=== PATIENT | male | born 1965 | race Caucasian/White ===

== ENCOUNTER → 2016-10-11 | Outpatient (CLI) | payer MEDICARE, MEDICAID ==
[~2016-10-11] MED LIST: ALDACTONE 25MG25 MG PO; AMOXICILLIN 50500 MG PO; ASPIRIN 81MG TA81 MG PO; ATIVAN GENERIC0.5 MG PO; ATIVAN1 MG PO; ATORVASTATIN CA80 MG PO; BACTRIM DS 8001 TAB PO; BACTROBAN2% TP; BIAXIN FILMTAB500 MG PO; BUPROPION ER100 MG PO; CARDIZEM GENERI30 MG FT; EFFIENT10 M1 PO; FLEXERIL10 M1 PO; FLEXERIL10 MG PO; HYDROCODONE BIT1 T19 PO; LISINOPRIL10 MG PO; LOPRESSOR 25MG.25 MG PO; METFORMIN500 MG PO; MOBIC15 MG PO; OXYCODONE CR10 MG PO; OXYCODONE30 MG PO; PANTOPRAZOLE SO40 M1 PO; PERCOCET 10 MG1 EACH PO; PERCOCET1 TAB PO; RELION NOVOLIN10 ML SC; TERAZOSIN HCL1 MG PO; WELLBUTRIN SR100 MG
[2016-10-11 12:53] LABS: AMPHETAMINES/METAMPHETAMINES NEGATIVE ng/mL (<1000)
[2016-10-11 14:38] LABS: BUN 19 mg/dL (7-18)
[2016-10-11 14:40] LABS: GFR (ESTIMATED) 70 ML/MIN (>60)
== END ==
LOC: LAB 11:46
PROVIDERS: Emergency Medicine
DX: E11.9 Type 2 diabetes mellitus without complications (principal); Z79.899 Other long term (current) drug therapy

== ENCOUNTER 2016-11-19 19:47 | Emergency (ER) | payer MEDICARE ==
[~2016-11-19] VITALS: Ht 182.9 cm; Wt 96.2 kg
--- NOTE | 2016-11-19 20:15 | Emergency Room Report ---
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 N Clinical Suspician of Infection? N Mental Status: 1 - Regular (Normal Baseline) Sepsis Risk:Low Sepsis Risk Have you (or family members/close friends) recently traveled outside the [place]? N If Yes, where/when: Have you had exposure to infectious disease within the past month? N TB? Other? Specify: Source patient, RN notes reviewed, family, old records Exam Limitations no limitations Comment acute injury lt femur and knee after trip fallthis pm Cardiac Chest Pain Chest pain indicative of cardiac No Timing/Duration this evening Severity moderate ALLERGIES Coded Allergies: latex (Intermediate, I-RASH 10/13/15) Home Medications Reported Medications ASPIRIN (Aspirin) 81 MG PO DAILY BUPROPION HCL (Bupropion HCl Sr) 100 MG PO DAILY #30 Pantoprazole Sodium 40 MG PO BID #30 INSULIN NPH HUM/REG INSULIN HM (Relion Novolin 70-30 Vial) 33 UNITS SC TID #30 VIAL Metoprolol Tartrate (Lopressor) 25 MG PO BID Atorvastatin Calcium 80 MG PO QHS #1 TAB Lisinopril 10 MG PO DAILY #30 TAB OXYCODONE HCL/ACETAMINOPHEN (Percocet 5-325 MG Tablet) 1 TAB PO TID BUPROPION HCL SR (Wellbutrin SR 100MG) History Medical History General CAD? Yes Angina: Yes DC: Yes Hypertension? Yes Hyperlipidemia? Yes CHF? No DVT? No PE? No COPD? No Asthma? No Anemia? No GERD? No Gastric ulcers? No GI Bleed? No Hernia? No Thyroid Problems? No Hypothyroidism? No CVA? No Seizures? No Diabetes? Yes Insulin Dependent: Yes Insulin Pump: No Home FSBS? Yes Renal Insuffiency? No End Stage Renal Disease? No UTI? No Stones? No BPH? Yes GB Disease: No Nephritic Syndrome? No Asplenia? No Hepatitis? No Sickle Cell Disease? No Arthritis? No Migraines? No Cataracts? No Glaucoma? No MRSA? No HIV? No TB? No Anxiety? No Depression? No Cancer? No More? No Immunization Hx DT/Tetanus 1-4 Years Ago Flu NEVER Pneumonia < 1 YR AGO Surgical Hx Previous Surgery?Y KNEE LEFT Appendix HEART CATH 3 STENTS PLACED IN HEART Family History Family Hx Diabetes Yes CAD Yes Hypertension Yes Hyperlipidemia Yes Cancer No Social History Smoking Hx Smoker: Current Every Day Smoker Tobacco: Yes Type Cigarettes Packs/day < 1 Pack Alcohol Alcohol: Yes Drugs none Review of Systems All Other Systems Reviewed and Negative Constitutional denies fever Eyes denies drainage ENT denies: ear discharge, epistaxis, throat pain. Respiratory denies cough, denies shortness of breath, denies wheezing Cardiovascular denies chest pain, denies syncope Gastrointestinal denies abdominal pain, denies diarrhea, denies vomiting Genitourinary denies: dysuria, frequency, hesitancy, hematuria. Musculoskeletal see HPI, denies back pain, joint pain, denies joint swelling, denies neck pain Skin denies rash Psychiatric/Neurological denies headache, denies seizure Physical Exam Vital Signs Vital Signs Date Time Temp Pulse Resp B/P Pulse O2 O2 Flow FiO2 Ox Delivery Rate 11/20 2055 81 18 154/98 96 11/20 2003 20 11/19 2001 97.0 83 22 142/97 98 - WBC >12,000 or <4,000 or 10% bands? 2 or more SIRS Criteria Met? B/P:154/98 MAP:112 Creatinine >2.0? UA output<0.5ml/kg/hr for 2 hrs? Platelet count >100,000? Lactate >2.0mmol/1? INR >1.2 or PTT > than 60 sec? Evidence of Organ Dysfunction? Provider documented clinical suspician of infection? N Sepsis Criteria Count: 1 Sepsis Risk: Low Sepsis Risk General Appearance no apparent distress Eye Exam - bilateral eye PERRL, bilateral eye EOMI Ear, Nose, Throat normal ENT inspection Neck supple Respiratory Status No: respiratory distress. Cardiovascular regular rate/rhythm Peripheral Pulses Pulses normal Yes Gastrointestinal soft Back no CVA tenderness, no vertebral tenderness Extremities pelvis stable, tender lt post femur with dec rom and flex but no hematoma Strength 4 Upper Ext (L), 4 Upper Ext (R), 4 Lower Ext (L), 4 Lower Ext (R) Neurologic alert, network associate II-XII nml as tested, no motor/sensory deficits Glascow Coma Scale Glascow Coma Scale Response Value EYE response: 4 Spontaneously 4 MOTOR response: 6 OBEYS 6 VERBAL response: 5 Oriented & Converses 5 Total 15 Reflexes Reflexes normal No Mental status normal mood/affect Skin intact Medical Decision Making LABS/Meds/Orders Pt receiving controlled substance in ED? No Results/Orders Laboratory Tests 11/19/161954: Sodium 138, Potassium 4.1, Chloride 103, Carbon Dioxide 26, BUN 12, Creatinine 1.1, Estimated Creat Clear 106, Estimated GFR (MDRD) 70, Glucose 298 H, Calcium 9.0, Total Bilirubin 0.3, AST 10 L, ALT 25, Alkaline Phosphatase 117 H, Total Protein 7.3, Albumin 3.9, Globulin 3.4 H, Albumin/Globulin Ratio 1.1, WBC 13.1 H, RBC 4.67, Hgb 13.6 L, Hct 41.1 L, MCV 88.0, RDW 15.4, Plt Count 249, Gran % 78.8, Gran # 10.3 H, Lymphocytes % 17.3, Monocytes % 3.9, Lymphocytes # 2.3, Monocytes # 0.5, PUBS MCHC 33.1, MCH 29.1 Current Medication Orders Sig/Missael Start time Last Medication Dose Route Stop Time Status Admin Morphine Sulfate 4 MG ONCE ONE 11/19 2014 DC 11/19 IV 11/19 Ondansetron HCl 4 MG ONCE ONE 11/19 2014 DC 11/19 IV 11/19 Sodium Chloride 10 ML PRN PRN 11/20 1999 AC IV 11/21 1999 Morphine Sulfate 0 .STK-MED ONE 11/19 1958 DC .ROUTE Ondansetron HCl 0 .STK-MED ONE 11/19 1958 DC .ROUTE Orders Procedure Date/time Status KNEE-3 VIEWS-LT 11/19 2028 Active CBC WITH AUTO DIFF 11/19 2005 Complete HIP LT 2-3V W/PELVIS IF PERFOR 11/19 2000 Active FEMUR-LT-2 VIEWS 11/19 2000 Active IV SALINE LOCK 11/19 2000 Active CHEM 12 PROFILE 11/19 2000 Complete XRAY/CT/US XRAY/CT/US XRAY femur, hip, knee, pelvis XR interpretation by reviewed by me Xray Results no fracture seen Departure Departure Time of Disposition 2112 Disposition DC Home or Self Care(routine) Clinical Impression Primary Impression: Lower extremity injury Qualifiers: Encounter type: initial encounter Laterality: left Qualified Code: S89.92XA - Unspecified injury of left lower leg, initial encounter Condition STABLE Referrals Raymundo Lange MD (Family) Patient Instructions DI for Leg Pain Additional Instructions ice and no wt bearing and see pcp for follow up Discharge Counseling Counseled pt/family regarding diagnosis, test results, medications/RX, follow up needs ED Critical Care Critical Care No at [id number]
[2016-11-19 20:16] LABS: HEMOGLOBIN 13.6 g/dL (14.1-18.0)
[2016-11-19 20:17] LABS: LYMPH # 2.3 K/mm3 (0.7-4.5); LYMPH % 17.3 % (10-50)
[2016-11-19 21:40] VITALS: BP 150/95
--- NOTE | 2016-11-20 05:20 | RADIOLOGY REPORT PS360 ---
HIP LT 2-3V W/PELVIS IF PERFOR HISTORY: Left hip pain following injury FALL ORDERING PHYSICIAN: Mary Lange MD PATIENT AGE: 51 years COMPARISON: None FINDINGS: No fracture or dislocation is evident. Mild osteoarthritic changes are present with minimal spurring of the inferior acetabulum. IMPRESSION: No acute finding. Mild osteoarthritic change
--- NOTE | 2016-11-20 05:24 | RADIOLOGY REPORT PS360 ---
KNEE-3 VIEWS-LT HISTORY: Posttraumatic pain fall ORDERING PHYSICIAN: Mary Lange MD PATIENT AGE: 51 years COMPARISON: None FINDINGS: There are severe osteoarthritic changes involving all 3 compartments of the left knee with some cortical irregularity of the medial femoral condyle. Osteoarthritis is worse at the patellofemoral joint with severe osteophyte formation. No acute fracture or dislocation. IMPRESSION: 1. No acute fracture. 2. Severe osteoarthritis of the knee
--- NOTE | 2016-11-20 05:24 | RADIOLOGY REPORT PS360 ---
FEMUR-LT-2 VIEWS HISTORY: Posttraumatic pain FALL ORDERING PHYSICIAN: Mary Lange MD PATIENT AGE: 51 years COMPARISON: None FINDINGS: No fracture or dislocation. No lytic or blastic change. There is normal mineralization. There are severe osteoarthritic changes involving all 3 compartments of the left knee with some cortical irregularity of the medial femoral condyle. Osteoarthritis is worse at the patellofemoral joint with severe osteophyte formation. No acute fracture or dislocation. IMPRESSION: 1. No acute fracture. 2. Severe osteoarthritis of the knee
== END 2016-11-19 21:33 | disposition home or self-care (01) ==
LOC: ER 19:47
PROVIDERS: Emergency Medicine
DX: S89.92XA Unspecified injury of left lower leg, initial encounter (principal); W01.0XXA Fall on same level from slipping, tripping and stumbling without subsequent striking against object, initial encounter; Y92.009 Unspecified place in unspecified non-institutional (private) residence as the place of occurrence of the external cause; Z91.040 Latex allergy status; E11.65 Type 2 diabetes mellitus with hyperglycemia; Z79.4 Long term (current) use of insulin; Z79.82 Long term (current) use of aspirin; I10 Essential (primary) hypertension; F17.210 Nicotine dependence, cigarettes, uncomplicated
CPT/HCPCS: J2405

== ENCOUNTER → 2016-12-04 | Outpatient (CLI) | payer MEDICARE ==
[2016-12-04 14:10] LABS: AMPHETAMINES/METAMPHETAMINES NEGATIVE ng/mL (<1000)
== END ==
LOC: LAB 12:02
PROVIDERS: Emergency Medicine
DX: Z79.899 Other long term (current) drug therapy (principal)

== ENCOUNTER → 2017-01-03 | Outpatient (CLI) | payer MEDICARE ==
[2017-01-03 11:46] LABS: AMPHETAMINES/METAMPHETAMINES NEGATIVE ng/mL (<1000)
== END ==
LOC: LAB 11:17
PROVIDERS: Emergency Medicine
DX: Z79.899 Other long term (current) drug therapy (principal)

== ENCOUNTER → 2017-01-27 | Outpatient (CLI) | payer MEDICARE ==
[2017-01-27 15:31] LABS: HEMOGLOBIN 14.7 g/dL (14.1-18.0); LYMPH # 2.4 K/mm3 (0.7-4.5); LYMPH % 28.8 % (10-50)
[2017-01-27 16:50] LABS: BUN 11 mg/dL (7-18)
[2017-01-27 16:51] LABS: GFR (ESTIMATED) 78 ML/MIN (>60)
== END ==
LOC: LAB 13:40
PROVIDERS: Emergency Medicine
DX: E11.9 Type 2 diabetes mellitus without complications (principal); I10 Essential (primary) hypertension; E78.5 Hyperlipidemia, unspecified

== ENCOUNTER → 2017-01-31 | Outpatient (CLI) | payer MEDICARE ==
[2017-01-31 16:11] LABS: AMPHETAMINES/METAMPHETAMINES NEGATIVE ng/mL (<1000)
[2017-02-08 03:37] LABS: Opiates Negative (Cutoff=100)
== END ==
LOC: LAB 13:37
PROVIDERS: Emergency Medicine
DX: Z79.899 Other long term (current) drug therapy (principal)